=== PATIENT | female | born 1935 | race Caucasian/White ===

== ENCOUNTER 2021-06-03 15:43 | Emergency (ER) | payer OTHER ==
[~2021-06-03] VITALS: Ht 162.6 cm; Wt 83.0 kg
[2021-06-03 15:45] VITALS: BP_SYST 124
[2021-06-03] MEDS ORDERED: NITROGLYCERIN 1 INCH (GM) OINT. TD ONE (16:00)
[2021-06-03] MEDS ORDERED: MORPHINE 4 MG INJ. 4 MG/ML VIAL IVP ONE (16:00)
[2021-06-03] MEDS ORDERED: NITROGLYCERIN 0.4 MG TAB.SUBL SL ONE (16:00)
--- NOTE | 2021-06-03 16:01 | NUR ---
Pt is A&Ox4. Skin intact. EKG done at bedside with results of NSR. Pt states she has chest pain 6/10 and sob that started today at 2pm. 20g placed on her left wrist. Placing pt in gown. Connected pt to color television console monitor. VSS. Ambulatory with steady gait.
[2021-06-03 16:25] LABS: BASOPHILS % (AUTO) 0.2 % (0.0-2.0); EOSINOPHILS # (AUTO) 0.4 K/uL (0.0-0.4); EOSINOPHILS % (AUTO) 5.8 % (0.0-4.0); HEMATOCRIT 37.3 % (36-48); HEMOGLOBIN 12.5 g/dL (12.0-16.0); LYMPHOCYTES # (AUTO) 1.4 K/uL (1.0-5.5); LYMPHOCYTES % (AUTO) 21.5 % (20.5-51.5); MEAN CORPUSCULAR HEMOGLOBIN 30 pg (27-31); MEAN CORPUSCULAR HGB CONC 34 % (32-36); MEAN CORPUSCULAR VOLUME 90 fL (79.0-98.0); MONOCYTES # (AUTO) 0.5 K/uL (0.0-1.0); MONOCYTES % (AUTO) 7.1 % (1.7-9.3); NEUTROPHILS # (AUTO) 4.1 K/uL (1.8-7.7); NEUTROPHILS % (AUTO) 65.4 % (40.0-70.0); PLATELET COUNT (AUTO) 200 K/uL (130-430); RED BLOOD CELL COUNT(AUTO) 4.17 MIL/uL (4.2-6.2); RED CELL DISTRIBUTION WIDTH 13.9 % (9.0-15.0); WHITE BLOOD COUNT (AUTO) 6.3 K/uL (4.8-10.8)
--- NOTE | 2021-06-03 16:33 | NUR ---
Pt given urine cup to provide urine sample.
--- NOTE | 2021-06-03 16:38 | NUR ---
Urine collected and sent to lab.
[2021-06-03 16:54] LABS: ANION GAP 6 (5-15); CALCIUM 8.9 mg/dL (8.4-11.0); CHLORIDE 105 mmol/L (98-107); CREATININE 1.03 mg/dL (0.55-1.30); GLUCOSE 118 mg/dL (70-99); SODIUM SERUM 139 mmol/L (136-145); UREA NITROGEN, BLOOD 17 mg/dL (8-21)
--- NOTE | 2021-06-03 17:02 | NUR ---
Morphine 4mg IV pusg given. Also gave pt 0.4mg Nitro sublingual and Nitro 0.5mg topical placed on upper middle chest. Pt is A&Ox4. Son at bedside. No sob noted.
[2021-06-03 17:03] LABS: ALANINE AMINOTRANSFERASE 16 U/L (12-78); ALBUMIN 3.5 g/dL (3.4-4.8); ASPARTATE AMINOTRANSFERASE 17 U/L (10-37); PHOSPHORUS 3.7 mg/dL (2.7-4.5); TOTAL BILIRUBIN 0.2 mg/dL (0.0-1.0)
[2021-06-03 17:09] LABS: INR 2.7 (0.8-1.2); PROTHROMBIN TIME 27.4 SECS (9.5-12.5)
[2021-06-03 17:50] LABS: BILIRUBIN,URINE NEGATIVE (NEGATIVE); BLOOD, URINE NEGATIVE (NEGATIVE); CLARITY/URINE CLEAR (CLEAR); COLOR,URINE YELLOW (YELLOW); GLUCOSE,URINE NEGATIVE (NEGATIVE); KETONES,URINE NEGATIVE (NEGATIVE); LEUKOCYTE ESTERASE ,URINE TRACE (NEGATIVE); NITRITE, URINE NEGATIVE (NEGATIVE); PH,URINE 5.5 (5.0-8.0); PROTEIN URINE NEGATIVE (NEGATIVE); UROBILINOGEN,URINE 0.2 (0.2-1.0)
[2021-06-03 18:12] LABS: BACTERIA,URINE FEW /HPF (None Seen); RBC,URINE 0-3 /HPF (0-3); WBC,URINE 0-3 /HPF (0-3)
[2021-06-03] MEDS ORDERED: CEPHALEXIN 125 MG/5 ML, 100 ML BTL PO ONE (19:15)
[2021-06-03] MEDS ORDERED: CEPH-548 PO (19:17)
[2021-06-03] MEDS ORDERED: ACET325T53 PO (19:17)
--- NOTE | 2021-06-03 19:24 | NUR ---
Patient AAO x4, resting in [facility], son at bedside, patient c/o 4/10 chest pain. MD notified. Received orders for Morphine 2mg IVP. Patient on cardic monitor. Awaiting results of second troponin and possible discharge.
[2021-06-03] MEDS ORDERED: MORPHINE 2 MG/ML INJ. SYRINGE IVP ONE (19:30)
--- NOTE | 2021-06-03 19:59 | NUR ---
Patient medicated per MD orders. Patient refused morphine, states pain has disappeared 0/10. Patient tolerated well.
[2021-06-03] MEDS ORDERED: cephALEXin 500 MG CAPSULE PO ONE (20:00)
[2021-06-03 20:16] VITALS: BP_SYST 130
--- NOTE | 2021-06-03 20:16 | NUR ---
Patient given written and verbal discharge instructions and verbalizes understanding. ER MD discussed with patient the results and treatment provided. Patient in stable condition. ID arm band removed. IV catheter removed intact and dressing applied, no active bleeding. Rx of keflex and tylenol given. Patient educated on pain management and to follow up with PMD. Pain Scale 0/10. Opportunity for questions provided and answered. Medication side effect fact sheet provided.
== END 2021-06-03 20:16 | disposition home or self-care (01) ==
LOC: SED 15:43
DX: N39.0 Urinary tract infection, site not specified (principal); D69.9 Hemorrhagic condition, unspecified; R07.89 Other chest pain; I10 Essential (primary) hypertension; Z88.1 Allergy status to other antibiotic agents; Z88.6 Allergy status to analgesic agent
CPT/HCPCS: 36415; 71045; 80053; 81000; 82550; 83735; 83880; 84100; 84484; 85025; 85379; 85610; 85730; 87086; 93005; 96374; 99285; J2270